=== PATIENT | female | born 1975 | race Caucasian/White ===

== ENCOUNTER 2017-10-10 20:40 | Emergency (ER) | payer OTHER ==
[~2017-10-10] VITALS: Ht 165.1 cm; Wt 80.7 kg
[2017-10-10 21:28] VITALS: Ht 165.1 cm; Wt 80.7 kg
[2017-10-10 23:29] VITALS: BP 121/78
== END 2017-10-10 23:29 | disposition home or self-care (01) ==
LOC: ED 20:40
DX: K62.89 Other specified diseases of anus and rectum (principal)

== ENCOUNTER 2017-10-15 14:46 | Emergency (ER) | payer OTHER ==
[~2017-10-15] VITALS: Ht 165.1 cm; Wt 81.2 kg
[2017-10-15 14:51] VITALS: Ht 165.1 cm; Wt 81.2 kg
[2017-10-15 16:55] VITALS: BP 114/81
== END 2017-10-15 16:55 | disposition home or self-care (01) ==
LOC: ED 14:46
DX: K62.5 Hemorrhage of anus and rectum (principal); K62.89 Other specified diseases of anus and rectum

== ENCOUNTER 2018-08-11 12:28 | Emergency (ER) | payer OTHER ==
[~2018-08-11] VITALS: Ht 165.1 cm; Wt 92.1 kg
[2018-08-11 13:16] VITALS: Ht 165.1 cm; Wt 92.1 kg
[2018-08-11 17:09] VITALS: BP 122/73
[2018-08-13 08:30] LABS: RAPID PLASMA REAGIN Non Reactive (Non Reactive)
== END 2018-08-11 17:09 | disposition home or self-care (01) ==
LOC: ED 12:28
PROVIDERS: Emergency Medicine
DX: N83.202 Unspecified ovarian cyst, left side (principal); N89.8 Other specified noninflammatory disorders of vagina; K21.9 Gastro-esophageal reflux disease without esophagitis; Z98.890 Other specified postprocedural states
CPT/HCPCS: 82962; 87491; 87591

== ENCOUNTER 2018-12-31 21:49 | Emergency (ER) | payer OTHER ==
[~2018-12-31] VITALS: Ht 165.1 cm; Wt 95.3 kg
[2018-12-31 21:53] VITALS: Ht 165.1 cm; Wt 95.3 kg
[2018-12-31 23:49] LABS: UA SPECIFIC GRAVITY 1.015 (1.005-1.035); microscopic required? YES; urine erythrocyte TRACE (NEGATIVE)
[2018-12-31 23:52] LABS: BASOPHIL % 1.3 % (0-2); PLATELET COUNT 326 x10^3mcL (130-400)
[2018-12-31 23:58] LABS: CALCIUM 8.5 mg/dL (8.5-10.1); CARBON DIOXIDE 25.3 mmol/L (21-32); CHLORIDE SERUM 104 mmol/L (98-107); CREATININE SERUM 0.7 mg/dL (0.6-1.0); GFR1 > 60 mL/min; GLUCOSE SERUM 83 mg/dL (74-106); POTASSIUM SERUM 3.9 mmol/L (3.5-5.1); SODIUM SERUM 137 mmol/L (136-145)
[2019-01-01 00:03] LABS: ALBUMIN 3.5 g/dL (3.4-5.0); ALKALINE PHOSPHATASE 69 U/L (46-116); ALT/SGPT 25 U/L (14-59); AST/SGOT 13 U/L (15-37); BILIRUBIN TOTAL 0.3 mg/dL (0.20-1.00); TOTAL PROTEIN, SERUM 6.9 g/dL (6.4-8.2)
[2019-01-01 02:25] VITALS: BP 131/78
== END 2019-01-01 02:25 | disposition home or self-care (01) ==
LOC: ED 21:49
PROVIDERS: Emergency Medicine
DX: R19.00 Intra-abdominal and pelvic swelling, mass and lump, unspecified site (principal); R35.0 Frequency of micturition; R30.0 Dysuria; K21.9 Gastro-esophageal reflux disease without esophagitis
CPT/HCPCS: 36415

== ENCOUNTER 2019-03-19 20:50 | Emergency (ER) | payer OTHER ==
[~2019-03-19] VITALS: Ht 165.1 cm; Wt 88.5 kg
[2019-03-19 20:56] VITALS: Ht 165.1 cm; Wt 88.5 kg
[2019-03-20 04:50] VITALS: BP 104/68
== END 2019-03-20 04:57 | disposition home or self-care (01) ==
LOC: ED 20:50
DX: N83.202 Unspecified ovarian cyst, left side (principal)
CPT/HCPCS: Q0092

== ENCOUNTER 2019-08-29 18:59 | Emergency (ER) | payer OTHER ==
[~2019-08-29] VITALS: Ht 167.6 cm; Wt 88.5 kg
[2019-08-29 19:04] VITALS: Ht 167.6 cm; Wt 88.5 kg
[2019-08-29 21:16] LABS: BASOPHIL % 0.6 % (0-2); PLATELET COUNT 337 x10^3mcL (130-400)
[2019-08-29 21:19] LABS: RED CELL DISTRIBUTION WIDTH 14.6 % (11.5-14.5)
[2019-08-29 21:21] LABS: BILIRUBIN TOTAL 0.2 mg/dL (0.20-1.00); CHLORIDE SERUM 108 mmol/L (98-107); GFR1 > 60 mL/min; POTASSIUM SERUM 3.6 mmol/L (3.5-5.1); SODIUM SERUM 144 mmol/L (136-145)
[2019-08-29 21:24] VITALS: BP 108/66
[2019-08-29 21:43] LABS: ALKALINE PHOSPHATASE 75 U/L (46-116); ALT/SGPT 28 U/L (14-59); CALCIUM 8.4 mg/dL (8.5-10.1); LIPASE 143 IU/L (73-393); TOTAL PROTEIN, SERUM 6.9 g/dL (6.4-8.2)
[2019-08-29 21:57] LABS: AST/SGOT 16 U/L (15-37); CREATININE SERUM 0.9 mg/dL (0.6-1.0); GLUCOSE SERUM 101 mg/dL (74-106)
[2019-08-29 22:03] LABS: ALBUMIN 3.3 g/dL (3.4-5.0)
== END 2019-08-29 22:32 | disposition home or self-care (01) ==
LOC: ED 18:59
PROVIDERS: Emergency Medicine
DX: R10.2 Pelvic and perineal pain (principal); R51 Headache
CPT/HCPCS: 87804; J2765; J7030

== ENCOUNTER 2020-05-25 13:59 | Emergency (ER) | payer OTHER ==
[~2020-05-25] VITALS: Ht 165.1 cm; Wt 94.3 kg
[2020-05-25 14:17] VITALS: Ht 165.1 cm; Wt 94.3 kg
[2020-05-25 15:40] LABS: UA SPECIFIC GRAVITY >=1.030 (1.005-1.035); microscopic required? YES; urine erythrocyte TRACE (NEGATIVE)
[2020-05-25 17:53] VITALS: BP 136/86
== END 2020-05-25 17:53 | disposition home or self-care (01) ==
LOC: ED 13:59
PROVIDERS: Emergency Medicine
DX: N83.202 Unspecified ovarian cyst, left side (principal); R35.0 Frequency of micturition; K21.9 Gastro-esophageal reflux disease without esophagitis